=== PATIENT | female | born 1960 | race Caucasian/White ===

== ENCOUNTER 2020-06-21 11:55 | Emergency (ER) | payer OTHER ==
[~2020-06-21] VITALS: Ht 152.4 cm; Wt 86.2 kg
[2020-06-21 12:20] VITALS: BP 122/69
== END 2020-06-21 13:42 | disposition home or self-care (01) ==
LOC: ER 11:58
DX: U07.1 COVID-19 (principal); R05 Cough; E11.9 Type 2 diabetes mellitus without complications; I10 Essential (primary) hypertension
CPT/HCPCS: 71045-TC